=== PATIENT | female | born 2000 | race African-American/Black ===

== ENCOUNTER 2018-09-05 19:32 | Emergency (ER) | payer SELFPAY ==
[~2018-09-05] VITALS: Ht 185.4 cm; Wt 90.7 kg
[2018-09-05] MEDS ORDERED: IV NORMAL SALINE 1000ML BAG 1,000 ML IV SCH (19:50)
[2018-09-05] MEDS ORDERED: KETOROLAC 30 MG/ML VIAL. IV ONE (20:00)
[2018-09-05 20:10] LABS: CALCIUM 9.2 mg/dL (8.5-10.1); CREATININE 0.8 mg/dL (0.6-1.0); GFR 91.4; POTASSIUM 3.6 mmol/L (3.5-5.1)
[2018-09-05 20:12] LABS: BASO # 0.1 x10^3/uL (0.0-0.2); BASO % 1 % (0-3); EOS # 0.4 x10^3/uL (0.0-0.7); EOS % 4 % (0-3); HEMATOCRIT 40.3 % (36.0-47.0); HEMOGLOBIN 13.5 g/dL (12.0-15.5); LYMPH % 23 % (24-48); MEAN CORPUSCULAR HEMOGLOBIN 29 pg (25-35); MEAN CORPUSCULAR HGB CONC 34 g/dL (31-37); MEAN CORPUSCULAR VOLUME 85 fL (79-100); MONO # 0.6 x10^3/uL (0.0-1.1); MONO % 7 % (0-9); NEUT # 5.7 x10^3uL (1.8-7.7); NEUT % 65 % (31-73); PLATELET COUNT 212 x10^3/uL (140-400); RED BLOOD COUNT 4.72 x10^6/uL (3.50-5.40); RED CELL DISTRIBUTION WIDTH 14.4 % (11.5-14.5); WHITE BLOOD COUNT 8.7 x10^3/uL (4.0-11.0)
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
[2018-09-05 20:15] LABS: BILIRUBIN,URINE NEGATIVE (NEG); CLARITY,URINE CLEAR; COLOR,URINE YELLOW; NITRITE,URINE NEGATIVE (NEG); PROTEIN,URINE NEGATIVE (NEG-TRACE); UROBILINOGEN,URINE 0.2 mg/dL (0.2 mg/dL)
[2018-09-05] MEDS ORDERED: IOHEXOL 300 MG/ML 100ML VIAL. IV ONE (20:15)
[2018-09-05 20:20] LABS: BACTERIA,URINE 0 /HPF (0-FEW); RBC,URINE 0 /HPF (0-2); SQUAMOUS EPITHELIAL CELL,UR OCC /LPF
[2018-09-05 20:21] LABS: BARBITURATES NEG (NEG); BENZODIAZEPINES NEG (NEG); CANNABINOIDS POS (NEG); COCAINE NEG (NEG); METHADONE NEG (NEG); OPIATES NEG (NEG); PHENCYCLIDINE NEG (NEG)
[2018-09-05 20:22] LABS: AMPHETAMINE/METHAMPHETAMINE NEG (NEG)
[2018-09-05 20:24] VITALS: BP 154/67
[2018-09-05 20:38] LABS: PROTHROMBIN TIME PATIENT 14.1 SEC (11.7-14.0)
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
[2018-09-05] MEDS ORDERED: ORPH100T PO (23:30)
[2018-09-05] MEDS ORDERED: HYDR-3164 PO (23:30)
[2018-09-05] MEDS ORDERED: MELO7.5T29 PO (23:30)
== END 2018-09-05 23:40 | disposition home or self-care (01) ==
LOC: ER 19:32
DX: M25.561 Pain in right knee (principal); M25.562 Pain in left knee; V49.9XXA Car occupant (driver) (passenger) injured in unspecified traffic accident, initial encounter; Y93.89 Activity, other specified; Y92.410 Unspecified street and highway as the place of occurrence of the external cause; Y99.8 Other external cause status
CPT/HCPCS: 36415; 70450; 71045; 71260; 72125; 72170; 73562; 74177; 80048; 80307; 81001; 81025; 83690; 85025; 85610; 85730; 86850; 86900; 86901; 96374; 99285; G0480; J1885; J7030; Q9967

== ENCOUNTER 2019-03-25 16:05 | Emergency (ER) | payer SELFPAY ==
[~2019-03-25] VITALS: Ht 182.9 cm; Wt 88.5 kg
[~2019-03-25 16:05] MED LIST: HYDR-3164 PO; MELO7.5T29 PO; ORPH100T PO
[2019-03-25 16:40] VITALS: BP 138/79
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
[2019-03-25] MEDS ORDERED: CYCL10TA2 PO (17:05)
== END 2019-03-25 17:10 | disposition home or self-care (01) ==
LOC: ER 16:05
DX: M54.2 Cervicalgia (principal); R51 Headache; M25.571 Pain in right ankle and joints of right foot; R68.84 Jaw pain; M25.511 Pain in right shoulder; M79.641 Pain in right hand; M79.631 Pain in right forearm; M79.674 Pain in right toe(s); V78.6XXA Passenger on bus injured in noncollision transport accident in traffic accident, initial encounter; Y93.89 Activity, other specified; Y92.410 Unspecified street and highway as the place of occurrence of the external cause; Y99.8 Other external cause status
CPT/HCPCS: 99283

== ENCOUNTER 2019-04-28 16:24 | Emergency (ER) | payer SELFPAY ==
[~2019-04-28] VITALS: Ht 182.9 cm; Wt 88.5 kg
[~2019-04-28 16:24] MED LIST changes: +CYCL10TA2 PO
[2019-04-28 17:15] VITALS: BP 135/61
--- NOTE | 2019-04-28 17:42 | PHYS DOC ---
Past Medical History Past Medical History: No Pertinent History (MELVINA PONCE APRN) Past Surgical History: No Surgical History (MEVLINA PONCE APRN) Alcohol Use: Rarely Drug Use: None (MELVINA PONCE APRN) Adult General Chief Complaint Chief Complaint: ABDOMINAL PAIN HPI HPI Patient is a 19 year old AA female who presents to the emergency Department today with complaints of pelvic pain, and vaginal spotting for the last 3 days. Patient also complains of nausea. Her last menstrual cycle was 14 days ago. She denies any vaginal odor, irregular vaginal discharge, vaginal itching, dysuria, hematuria, or increased urinary frequency. Patient states that prior to the onset of bleeding she had no symptoms. She reports that her last intercourse was a month and half ago she did use a condom at that time. She denies any other complaints currently she rates her pelvic pain is 7 out of 10 on the pain scale. She denies any alleviating or exacerbating factors. (MELVINA PONCE APRN) Review of Systems Review of Systems Constitutional: Denies fever or chills [] Eyes: Denies redness, or eye pain [] HENT: Denies nasal congestion or sore throat [] Respiratory: Denies cough or shortness of breath [] Cardiovascular: No additional information not addressed in HPI [] GI: Denies abdominal pain, nausea, vomiting, or diarrhea [] : Denies dysuria or hematuria; see HPI [] Musculoskeletal: Denies joint pain [] Integument: Denies rash or skin lesions [] Neurologic: Denies headache] Complete systems were reviewed and found to be within normal limits, except as documented in this note. (MELVINA PONCE APRN) Current Medications Current Medications Current Medications Medications (Trade) Dose Ordered Sig/Eliana Start Time Stop Time Status Last Admin Dose Admin Azithromycin (Zithromax) 1,000 mg 1X ONCE 04/28/19 18:30 04/28/19 18:35 DC 04/28/19 18:40 1,000 MG Ceftriaxone Sodium (Rocephin Im) 250 mg 1X ONCE 04/28/19 18:30 04/28/19 18:35 DC 04/28/19 18:40 250 MG (LUCA SALMON DO) Allergies Allergies Allergies Coded Allergies Type Severity Reaction Last Updated Verified No Known Drug Allergies 09/05/18 No (VIKYLUCA Ashok DO) Physical Exam Physical Exam Constitutional: Well developed, well nourished, no acute distress, non-toxic appearance, obese [] HENT: Normocephalic, atraumatic, bilateral external ears normal, nose normal. [] Eyes: PERRLA, EOMI, conjunctiva normal, no discharge. [] Neck: Normal range of motion, no stridor. [] Cardiovascular:Heart rate regular rhythm, no murmur [] Lungs & Thorax: Bilateral breath sounds clear to auscultation [] Pelvic Exam: Stone Cleaner present Cher PIERCE Abdomen: Nontender, soft, no palpable masses External Genitalia: Normal Skin Speculum: Normal vaginal mucosa, yellow-green with blood streaks cervical discharge; friable cervix Bimanual: No adnexal masses or tenderness, No CMT Skin: Warm, dry, no erythema, no rash. [] Back: No CVA tenderness. [] Extremities: No cyanosis, ROM intact, no edema. [] Neurologic: Alert and oriented X 3, no focal deficits noted. [] Psychologic: Affect normal, judgement normal, mood normal. [] (MELVINA PONCE APRN) Current Patient Data Vital Signs Vital Signs Date Time Temp Pulse Resp B/P (MAP) Pulse Ox O2 Delivery O2 Flow Rate FiO2 04/28/19 17:15 98.8 96 18 135/61 (85) 99 Room Air 98.8 (SALMONLUCA Ashok DO) Lab Values Laboratory Tests Test 04/28/19 17:21 Urine Collection Type Unknown Urine Color [place] Urine Clarity Clear Urine pH 6.0 Urine Specific [place] 1.025 Urine Protein Negative mg/dL (NEG-TRACE) Urine Glucose (UA) Negative mg/dL (NEG) Urine Ketones (Stick) 40 mg/dL (NEG) Urine Blood Negative (NEG) Urine Nitrite Negative (NEG) Urine Bilirubin Negative (NEG) Urine Urobilinogen Dipstick 1.0 mg/dL (0.2 mg/dL) Urine Leukocyte Esterase Small (NEG) Urine RBC Occ /HPF (0-2) Urine WBC 5-10 /HPF (0-4) Urine Squamous Epithelial Cells Occ /LPF Urine Bacteria 0 /HPF (0-FEW) Urine Mucus Marked /LPF Urine Test Negative (NEG) Microbiology 04/28/19 Wet Prep - Final, Complete (LUCA SALMON DO) Lab Values Laboratory Tests Test 04/28/19 17:21 Urine Collection Type Unknown Urine Color [place] Urine Clarity Clear Urine pH 6.0 Urine Specific [place] 1.025 Urine Protein Negative mg/dL (NEG-TRACE) Urine Glucose (UA) Negative mg/dL (NEG) Urine Ketones (Stick) 40 mg/dL (NEG) Urine Blood Negative (NEG) Urine Nitrite Negative (NEG) Urine Bilirubin Negative (NEG) Urine Urobilinogen Dipstick 1.0 mg/dL (0.2 mg/dL) Urine Leukocyte Esterase Small (NEG) Urine RBC Occ /HPF (0-2) Urine WBC 5-10 /HPF (0-4) Urine Squamous Epithelial Cells Occ /LPF Urine Bacteria 0 /HPF (0-FEW) Urine Mucus Marked /LPF Urine Test Negative (NEG) Microbiology 04/28/19 Wet Prep - Final, Complete (MELVINA PONCE APRN) EKG EKG [] (MELVINA PONCE APRN) Radiology/Procedures Radiology/Procedures [] (MELVINA PONCE APRN) Course & Med Decision Making Course & Med Decision Making Pertinent Labs and Imaging studies reviewed. (See chart for details) dx: BV, suspected STI Patient was treated prophylactically with 250 mg of IM Rocephin, and 1 g of PO Zithromax. Patient was instructed to avoid having intercourse until the results of gonorrhea and chlamydia testing are available, patient was notified that these results would not be available for 48 hours. If one or both of these tests is positive, patient needs to refrain from intercourse for approximately 1 week following the treatment of any current partners. Prescription written for Flagyl 500 mg by mouth twice a day �7 days. Pt encouraged to follow up with Dr. Quinones for further evaluation of irregular vaginal bleeding Patient verbalized understanding of home care, medications, follow-up, and return to ED instructions and was in agreement with the plan of care. [] (MELVINA PONCE APRN) Dragon Disclaimer Dragon Disclaimer This electronic medical record was generated, in whole or in part, using a voice recognition dictation system. (MELVINA PONCE APRN) Departure Departure Impression: Primary Impression: Bacterial vaginosis Additional Impressions: Vaginal bleeding, abnormal Contact with and (suspected) exposure to infections with a predominantly sexual mode of transmission Disposition: 01 HOME, SELF-CARE Condition: STABLE Referrals: KATARZYNA QUINONES Jr, MD Patient Instructions: Bacterial Vaginosis, [id number], Sexually Transmitted Disease, [id number], Uterine Bleeding, Dysfunctional, [id number] Additional Instructions: Fill the prescription and use as directed. Recommend that you go to your local health department for comprehensive sexually transmitted disease testing. You have been treated for a suspected gonorrhea and chlamydia. Avoid having intercourse until the results of gonorrhea and chlamydia testing are available, these results will not be available for 48 hours. If one or both of these tests is positive, you need to refrain from intercourse for approximately 1 week f ollowing the treatment of any current partners. Follow-up with Dr. Quinones for further evaluation of irregular vaginal bleeding, return to ER if symptoms worsen. Scripts Metronidazole (FLAGYL) 500 Mg Tablet 1 TAB PO BID for 7 Days, #14 TAB 0 Refills Prov: MELVINA PONCE APRN 04/28/19 Attending Signature Attending Signature I have reviewed the PA/CHIEF EMBALMER's note and plan of care. I was available for consultation as needed during the patient's visit in the emergency department. I agree with the clinical impression, plan, and disposition. (LUCA SALMON DO) Problem Qualifiers MELVINA PONCE APRN Apr 28, 2019 17:42 LUCA SALMON DO Apr 28, 2019 19:13
[2019-04-28 17:49] LABS: BILIRUBIN,URINE NEGATIVE (NEG); CLARITY,URINE CLEAR; COLOR,URINE AMBER; NITRITE,URINE NEGATIVE (NEG); PROTEIN,URINE NEGATIVE (NEG-TRACE)
[2019-04-28 17:54] LABS: U PREG PATIENT NEGATIVE (NEG)
[2019-04-28 18:02] LABS: BACTERIA,URINE 0 /HPF (0-FEW); RBC,URINE OCC /HPF (0-2)
[2019-04-28 18:03] LABS: SQUAMOUS EPITHELIAL CELL,UR OCC /LPF
[2019-04-28] MEDS ORDERED: cefTRIAXone IM 250 MG VIAL IM ONE (18:30)
[2019-04-28] MEDS ORDERED: AZITHROMYCIN 250 MG TABLET. PO ONE (18:30)
[2019-04-28] MEDS ORDERED: METR500T PO (18:51)
[2019-04-30 17:12] LABS: GC PROBE Negative (Negative)
== END 2019-04-28 19:16 | disposition home or self-care (01) ==
LOC: ER 16:24
DX: N76.0 Acute vaginitis (principal); B96.89 Other specified bacterial agents as the cause of diseases classified elsewhere; R11.0 Nausea; Z20.2 Contact with and (suspected) exposure to infections with a predominantly sexual mode of transmission
CPT/HCPCS: 81001; 81025; 87086; 87491; 87591; 96372; 99284; J0696; Q0111; Q0144

== ENCOUNTER 2020-01-15 16:45 | Emergency (ER) | payer SELFPAY ==
[~2020-01-15] VITALS: Ht 182.9 cm; Wt 88.6 kg
[~2020-01-15 16:45] MED LIST changes: +METR500T PO
[2020-01-15 17:27] LABS: BILIRUBIN,URINE NEGATIVE (NEG); CLARITY,URINE CLEAR; COLOR,URINE YELLOW; NITRITE,URINE NEGATIVE (NEG); PH,URINE 6.5 (<5.0-8.0); PROTEIN,URINE NEGATIVE (NEG-TRACE); UROBILINOGEN,URINE 0.2 mg/dL (0.2 mg/dL)
[2020-01-15] MEDS ORDERED: cefTRIAXone IM 250 MG VIAL IM ONE (17:30)
[2020-01-15] MEDS ORDERED: AZITHROMYCIN 250 MG TABLET. PO ONE (17:30)
[2020-01-15] MEDS ORDERED: ONDANSETRON ODT 4 MG TAB.RAPDIS. PO ONE (17:30)
--- NOTE | 2020-01-15 17:30 | PHYS DOC ---
Past Medical History Past Medical History: No Pertinent History (SHANI BE APRN) Past Surgical History: No Surgical History (SHANI BE APRN) Smoking Status: Never Smoker Alcohol Use: Rarely Drug Use: None (SHANI BE APRN) General Adult EDM: Chief Complaint: ABDOMINAL PAIN HPI: HPI: Patient is a 20 year old Female who presents with lower pelvic cramping that patient describes as a dull pain. Patient rates her pain a 4 out of 10. Patient is denying any urinary complaints and she is denying any vaginal dischar ge. Patient reports that she is concerned for an STD because she had a broken condom on Monday. Patient reports that she was to be tested and treated for STDs today. Patient is reporting some slight nausea. She reports that her menstrual cycle is starting today. Patient's abdomen is soft, flat, nontender with palpation. Last bowel movement was today and patient reports that it was soft. (SHANI BE APRN) Review of Systems: Review of Systems: GI: Lower abdominal pain, reporting nausea, denies vomiting, bloody stools or diarrhea. [] : Denies dysuria, vaginal discharge. [] (SHANI BE APRN) Heart Score: Risk Factors: Risk Factors: DM, Current or recent (<one month) smoker, HTN, HLP, family history of CAD, obesity. Risk Scores: Score 0 - 3: 2.5% MACE over next 6 weeks - Discharge Home Score 4 - 6: 20.3% MACE over next 6 weeks - Admit for Clinical Observation Score 7 - 10: 72.7% MACE over next 6 weeks - Early Invasive Strategies (SHANI BE APRN) Allergies: Allergies: Allergies Coded Allergies Type Severity Reaction Last Updated Verified No Known Drug Allergies 09/05/18 No (SHANI BE APRN) Physical Exam: PE: Abdomen: Bowel sounds normal, soft, no tenderness, no masses, no pulsatile ma sses. [] (SHANI EB APRN) Current Patient Data: Labs: Laboratory Tests Test 01/15/20 17:14 POC Urine HCG, Qualitative Hcg negative (Negative) (SHANI BE APRN) EKG: EKG: [] (SHANI BE APRN) Radiology/Procedures: Radiology/Procedures: [] Impression: [facility] [address] [place] [address] IMAGING REPORT Signed PATIENT: KAVITA REHMAN ACCOUNT: [id number] : 2000 LOCATION: ER AGE: 20 SEX: F EXAM STATUS: REG ER ORD. PHYSICIAN: SHANI BE APRN REASON: pelvic pain PROCEDURE: PELVIS COMPLETE PELVIS COMPLETE: 01/15/2020 6:31 PM INDICATION: 20 years old Female. Pelvic pain. COMPARISON: None. TECHNIQUE: Transabdominal and transvaginal sonographic evaluation of the pelvis was performed. Grayscale, color Doppler and spectral waveform analysis were utilized. FINDINGS: UTERUS: Size: 7.6 x 4.0 x 3.7 cm. Masses: None. Endometrium: 6.2 mm. No suspicious vascularity is identified. RIGHT OVARY: 4.2 x 2.6 x 1.8 cm. Ovary is normal in appearance. LEFT OVARY: 3.3 x 2.7 x 2.2 cm. Ovary is normal in appearance. Arterial and venous waveform are identified within the ovaries bilaterally at the time of imaging. FREE FLUID: None. URINARY BLADDER: Unremarkable. IMPRESSION: Perfusion is noted to the ovaries bilaterally at the time of imaging. Electronically signed by: Deandre Paulino MD (01/15/2020 8:27 PM) [facility] DICTATED and SIGNED BY: DEANDRE PAULINO MD DATE: 01/15/202026 (SHANI BE APRN) Course & Med Decision Making: Course & Med Decision Making Pertinent Labs and Imaging studies reviewed. (See chart for details) Patient is reporting lower abdominal dull cramping pain. Patient's abdomen is soft flat and nontender with palpation. Patient has active bowel sounds. Last bowel movement today and it was soft. Patient denies any urinary complaints, denies dysuria, frequency, hematuria. Patient denies any vaginal discharge, itching, patient is reporting vaginal spotting but states that her menstrual cycle starting today. Patient is reporting nausea but has not vomited today. Pelvic Exam: Manufacturing Maintenance Mechanic present Abdomen: Nontender External Genitalia: Normal Skin Speculum: Normal vaginal mucosa, Bloody cervical discharge Bimanual: No adnexal masses or tenderness, No CMT [] (SHANI BE APRN) Dragon Disclaimer: Dragon Disclaimer: This electronic medical record was generated, in whole or in part, using a voice recognition dictation system. (SHANI BE APRN) Departure Departure Impression: Primary Impression: Bacterial vaginosis Additional Impression: Concern about STD in female without diagnosis Disposition: HOME, SELF-CARE Condition: STABLE Referrals: NO PCP (PCP) Patient Instructions: Bacterial Vaginosis, [id number] Additional Instructions: Follow-up with bar machine operator multiple spindle if needed. Take medication with food and as prescribed. Do not drink alcohol with this medication as it will make you very sick. Take ibuprofen for any pain. Scripts Metronidazole (FLAGYL) 500 Mg Tablet 1 TAB PO BID, #14 TAB Prov: SHANI BE APRN 01/15/20 Justicifation of Admission Dx: Justifications for Admission: Justification of Admission Dx: N/A (SHANI BE APRN) Attending Signature Attending Signature I have participated in the care of this patient and I have reviewed and agree with all pertinent clinical information above including history, exam, and recommendations. (SPARKLE SMYTH DO) SHANI BE APRN Jan 15, 2020 17:30 SPARKLE SMYTH DO Jan 16, 2020 06:37
[2020-01-15 17:34] LABS: BACTERIA,URINE FEW /HPF (0-FEW); SQUAMOUS EPITHELIAL CELL,UR MOD /LPF; WBC,URINE OCC /HPF (0-4)
[2020-01-15 18:03] LABS: BASO # 0.1 x10^3/uL (0.0-0.2); BASO % 1 % (0-3); EOS # 0.5 x10^3/uL (0.0-0.7); EOS % 6 % (0-3); HEMATOCRIT 35.1 % (36.0-47.0); HEMOGLOBIN 12.6 g/dL (12.0-15.5); LYMPH # 2.7 x10^3/uL (1.0-4.8); LYMPH % 31 % (24-48); MEAN CORPUSCULAR HEMOGLOBIN 31 pg (25-35); MEAN CORPUSCULAR HGB CONC 36 g/dL (31-37); MEAN CORPUSCULAR VOLUME 85 fL (79-100); MONO # 0.6 x10^3/uL (0.0-1.1); MONO % 6 % (0-9); NEUT # 4.8 x10^3/uL (1.8-7.7); NEUT % 56 % (31-73); PLATELET COUNT 255 x10^3/uL (140-400); RED BLOOD COUNT 4.12 x10^6/uL (3.50-5.40); RED CELL DISTRIBUTION WIDTH 13.2 % (11.5-14.5); WHITE BLOOD COUNT 8.6 x10^3/uL (4.0-11.0)
[2020-01-15 18:12] LABS: CALCIUM 8.4 mg/dL (8.5-10.1); CREATININE 1.1 mg/dL (0.6-1.0); GFR 75.2; POTASSIUM 3.6 mmol/L (3.5-5.1)
[2020-01-15 18:13] LABS: PROTHROMBIN TIME PATIENT 13.7 SEC (11.7-14.0)
[2020-01-15 18:17] LABS: ALBUMIN 3.7 g/dL (3.4-5.0); ALBUMIN/GLOBULIN RATIO 1.1 (1.0-1.7); TOTAL BILIRUBIN 0.3 mg/dL (0.2-1.0); TOTAL PROTEIN 7.2 g/dL (6.4-8.2)
[2020-01-15 18:22] LABS: BARBITURATES NEG (NEG); BENZODIAZEPINES NEG (NEG); CANNABINOIDS POS (NEG); COCAINE NEG (NEG); METHADONE NEG (NEG); OPIATES NEG (NEG); PHENCYCLIDINE NEG (NEG)
[2020-01-15 18:24] LABS: AMPHETAMINE/METHAMPHETAMINE NEG (NEG)
[2020-01-15] MEDS ORDERED: METR500T PO (20:28)
--- NOTE | 2020-01-15 20:29 | RAD ---
PELVIS COMPLETE: 01/15/2020 6:31 PM INDICATION: 20 years old Female. Pelvic pain. COMPARISON: None. TECHNIQUE: Transabdominal and transvaginal sonographic evaluation of the pelvis was performed. Grayscale, color Doppler and spectral waveform analysis were utilized. FINDINGS: UTERUS: Size: 7.6 x 4.0 x 3.7 cm. Masses: None. Endometrium: 6.2 mm. No suspicious vascularity is identified. RIGHT OVARY: 4.2 x 2.6 x 1.8 cm. Ovary is normal in appearance. LEFT OVARY: 3.3 x 2.7 x 2.2 cm. Ovary is normal in appearance. Arterial and venous waveform are identified within the ovaries bilaterally at the time of imaging. FREE FLUID: None. URINARY BLADDER: Unremarkable. IMPRESSION: Perfusion is noted to the ovaries bilaterally at the time of imaging. Electronically signed by: Makeda Redmond MD (01/15/2020 8:27 PM) [facility]
[2020-01-15 20:40] VITALS: BP 123/68
[2020-01-16 21:12] LABS: GC PROBE Negative (Negative)
== END 2020-01-15 20:42 | disposition home or self-care (01) ==
LOC: ER 16:45
DX: N76.0 Acute vaginitis (principal); B96.89 Other specified bacterial agents as the cause of diseases classified elsewhere; Z20.2 Contact with and (suspected) exposure to infections with a predominantly sexual mode of transmission
CPT/HCPCS: 36415; 76856; 80053; 80307; 81001; 81025; 83690; 85025; 85610; 87491; 87591; 96372; 99285; J0696; Q0111